=== PATIENT | female | born 1990 | race Caucasian/White ===

== ENCOUNTER 2020-08-22 23:14 | Emergency (ER) | payer OTHER ==
[~2020-08-22] VITALS: Ht 165.1 cm; Wt 58.5 kg
[~2020-08-22 23:14] MED LIST: FLONASE ALLERG9.9 ML NAS; HUMALOG100 UNIT/1 SUB-Q; IBUPROFEN600 MG PO; MAGOX 400400 MG PO; MAPAP500 MG PO; MULTI VITAMIN1 EACH PO; NORETHINDRONE0.35 MG PO; OFIRMEV1000 MG/10 IV; OXYCODON-ACETA1 EAC2 PO; VITAMIN D325 MCG PO; WELLBUTRIN XL150 MG PO
== END 2020-08-22 23:50 | disposition home or self-care (01) ==
LOC: ED 23:14
DX: T55.0X1A Toxic effect of soaps, accidental (unintentional), initial encounter (principal); H57.13 Ocular pain, bilateral; E10.9 Type 1 diabetes mellitus without complications; Z79.899 Other long term (current) drug therapy
CPT/HCPCS: 99283

== ENCOUNTER 2024-08-17 13:49 | Emergency (ER) | payer OTHER ==
[~2024-08-17] VITALS: Ht 165.1 cm; Wt 59.6 kg
[2024-08-17] MEDS ORDERED: NORETHIND-ETH1 EACH PO (14:12)
[2024-08-17] MEDS ORDERED: SERTRALINE HCL25 MG PO (14:12)
[2024-08-17] MEDS ORDERED: NOVOLOG100 UNIT/2 SUB-Q (14:13)
[2024-08-17 14:36] LABS: BASOPHILS 0.6 % (0.1-1.2); EOSINOPHILS 1.4 % (0.7-5.8); HEMATOCRIT 37.7 % (34.1-44.9); LYMPHOCYTES 29.2 % (19.3-51.7); MCH 32.2 PG (25.6-32.2); MCHC 34.5 g/dL (32.2-35.5); MCV 93.3 fL (79.4-94.8); MONOCYTES 5.6 % (4.7-12.5); PLATELET COUNT 253 K/uL (182-369); RBC 4.04 M/uL (3.93-5.22)
[2024-08-17 15:07] LABS: ALBUMIN/GLOBULIN RATIO 1.18 (1.1-2.4); ALKALINE PHOSPHATASE 52 U/L (46-116); ALT (SGPT) 20 U/L (14-59); ANION GAP 12.8 (7-21); AST (SGOT) 15 U/L (15-37); BILIRUBIN, TOTAL 0.9 mg/dL (0.2-1.0); BUN/CREATININE RATIO 7.56 (6.0-28.6); CALCIUM 9.1 mg/dL (8.5-10.1); CARBON DIOXIDE 26 mmol/L (21-32); CHLORIDE 101 mmol/L (98-107); CREATININE, SERUM 1.19 mg/dL (0.55-1.02); GLOMERULAR FILTRATION RATE,EST 62 mL/min (>60); MAGNESIUM 2.2 mg/dL (1.8-2.4); POTASSIUM 3.8 mmol/L (3.5-5.1); PROTEIN, TOTAL 7.4 g/dL (6.4-8.2); UREA NITROGEN 9 mg/dL (7-18)
[2024-08-17 16:37] VITALS: BP 112/74
--- NOTE | 2024-08-17 22:51 | EKG ---
[facility] [address] [facility] [place] [address] Signed Normal sinus rhythm Normal ECG No previous ECGs available Confirmed by Yves Pettit MD () on 08/17/2024 10:51:36 PM Electronically Signed By: YVES PETTIT MD 08/17/[id number] PATIENT NAME: GRECIA ALAN Electrocardiogram DATE OF : 88 PHYSICIAN: YVES PETTIT MD REPORT #: [id number] REPORT IS CONFIDENTIAL AND NOT TO BE RELEASED WITHOUT AUTHORIZATION
== END 2024-08-17 16:37 | disposition home or self-care (01) ==
LOC: ED 13:49
PROVIDERS: Emergency Medicine
DX: R06.02 Shortness of breath (principal); E10.9 Type 1 diabetes mellitus without complications; Z79.899 Other long term (current) drug therapy
CPT/HCPCS: 36415; 71045; 80053; 83735; 84484; 84703; 85025; 85379; 93005; 93010; 99285-25